=== PATIENT | female | born 1985 | race Caucasian/White ===

== ENCOUNTER 2019-06-10 22:18 | Observation (INO) | payer OTHER, SELFPAY ==
[2019-06-10 22:30] VITALS: TEMP 36.1; BMI 38.5
[2019-06-10 22:35] VITALS: BP 116/79; PULSE 97
[2019-06-10] MEDS: LACTATED RINGERS 1,000 ML 999 ML IV CONT (23:58)
--- NOTE | 2019-06-13 10:38 | PM.OBTRLD ---
OB - Triage/Final Diagnosis Visit Information Reason for evaluation: threatened labor
== END 2019-06-11 01:32 | disposition home or self-care (01) ==
PROVIDERS: Admitting Provider Obstetrics & Gynecology; Visit Provider Obstetrics & Gynecology
DX: O47.1 False labor at or after 37 completed weeks of gestation (principal); Z3A.38 38 weeks gestation of pregnancy
CPT/HCPCS: G0378; G0379; J7120

== ENCOUNTER 2019-06-12 20:44 | Observation (INO) | payer OTHER, SELFPAY ==
[2019-06-12 21:01] VITALS: BP 111/79; PULSE 86
[2019-06-12 21:16] VITALS: BP 111/59; PULSE 82
[2019-06-12 21:31] VITALS: BP 126/82; PULSE 80
[2019-06-12 21:46] VITALS: BP 118/75; PULSE 78
[2019-06-12 22:01] VITALS: BP 100/76; PULSE 80
[2019-06-12 22:16] VITALS: BP 117/74; PULSE 81
--- NOTE | 2019-06-12 22:36 | OBADM ---
This patient, Rosie Oneill, admitted to the OB room Labor/Delivery/Recovery 119 for observation. Patient/family oriented to hospital policies and general routines including ID bracelet, bed and alarms, visiting hours, pain management, procedures, bathroom and other care routines, personal items, smoking policy, room service/diet, and visiting hours. Patient/Family are encouraged to report perceived risks to care and to ask questions if they do not understand what they are told or what they should do.
--- NOTE | 2019-06-21 15:36 | PM.OBTRLD ---
OB - Triage/Final Diagnosis Visit Information Reason for evaluation: threatened labor
== END 2019-06-12 22:34 | disposition home or self-care (01) ==
PROVIDERS: Admitting Provider Obstetrics & Gynecology; Visit Provider Obstetrics & Gynecology
DX: O47.1 False labor at or after 37 completed weeks of gestation (principal); Z3A.39 39 weeks gestation of pregnancy
CPT/HCPCS: G0378; G0379

== ENCOUNTER 2019-06-13 15:28 | Outpatient (CLI) | payer OTHER, SELFPAY ==
[2019-06-13 15:45] LABS: Hematocrit 33.9 % (37.0-47.0); Hemoglobin 11.2 g/dL (12.0-15.0); Mean Corpuscular Hemoglobin 27.7 pg (26-34); Mean Corpuscular Volume 83.7 fl (80-100); Mean Platelet Volume 10.9 fl (7.4-10.4); Platelet Count Result 267 k/mm3 (150-375); Red Blood Count 4.05 M/mm3 (4.2-5.4); White Blood Count 8.6 K/mm3 (4.5-10.0)
[2019-06-13 16:42] LABS: HIV 1/2 Ab P24 Ag Result Negative (Negative)
[2019-06-14 07:43] LABS: Rapid Plasma Reagin Non-Reactive (NonReactive)
== END 2019-06-13 15:29 | disposition home or self-care (01) ==
LOC: ANHLAB 15:30
PROVIDERS: Visit Provider Obstetrics & Gynecology
DX: Z01.818 Encounter for other preprocedural examination (principal)
CPT/HCPCS: 36415; 85027; 86592; 86703; 86850; 86880; 86900; 86901; 86902; G0432

== ENCOUNTER 2019-06-14 09:53 | Inpatient (IN) | payer OTHER, SELFPAY ==
--- NOTE | 2019-06-13 15:18 | PC.NURSE ---
VERIFIED WITH OR SCHEDULE AND PATIENT --C/S WITH TUBAL LIGATION ON 06/14/19 AT 1200 PATIENT SENT TO LAB AFTER PREADMIT FOR PREOP LAB DRAW PLUS SECOND HIV
[2019-06-14] VITALS (69 sets, daily range): BP systolic 59–149; BP diastolic 33–126; PULSE 57–155; RESP 14–20; TEMP 35.8–36.8; O2SAT 94–100; BMI 38.5
--- NOTE | 2019-06-14 10:13 | WPDANESEPPF ---
Anes - Initial Pre Proc Eval Procedure: Operation Date: 06/14/19 12:00 Proposed Procedures p Repeat Section With Bilateral Tubal Ligation - Sean Steele MD Date/Time: 06/14/19 10:13 Surgeon: Sean Steele MD Pre Op Diagnosis: Scheduled C Section Patient Data Age: 33 Gender: F Height: 5 ft 8 in Weight: 115 kg Allergies Allergy/AdvReac Type Severity Reaction Status Date / Time peanut Allergy Difficulty Verified 06/13/19 14:57 Swallowing Home Medications Medication Instructions Recorded Confirmed Type escitalopram oxalate [Lexapro] 5 mg PO DAILY 06/13/19 06/13/19 History Patient hx anesthesia problems: none Family hx anesthesia problems: none PMFSH Past Medical History Medical History (Updated 06/14/19 @ 10:14 by George Pérez MD) Anxiety Depression Obesity Surgical History Surgical History (Updated 06/14/19 @ 10:14 by George Pérez MD) History of section History of cholecystectomy Hx of tonsillectomy Family History Family History Mother Hypothyroidism Father Hypertension Social History Social History Substance use: never Spiritual care concerns: No Anes - Eval Final PreProcedure Day of Procedure 06/14/19 10:13 Patient weight: obese Heart: regular rate and rhythm Airway: Mallampati scale class II Neurological: alert and oriented Last oral intake: >/= 8 hours ASA classification: II Emergent: no Anesthesia type and monitoring: regional spinal and standard monitoring Informed Consent: The patient's anesthetic plan and its attendant risks and benefits were discussed with the patient/family/POA. Questions were solicited and answers provided to the satisfaction of the patient/family/POA.
[2019-06-14] MEDS: LACTATED RINGERS 1,000 ML 999 ML IV CONT ×2 (10:25→11:02)
--- NOTE | 2019-06-14 10:46 | LDADM ---
This patient, Rosie Oneill, was admitted to Labor/Delivery/Recovery 119 on 06/14/19 at 09:53. Plans for and pain management were discussed with patient. Patient/family oriented to hospital policies and general routines including ID bracelet, bed and alarms, visiting hours, pain management, procedures, bathroom and other care routines, personal items, smoking policy, room service/diet and guest tray routines, infant security routines, and visiting hours. Patient/Family are encouraged to report perceived risks to care and to ask questions if they do not understand what they are told or what they should do. See OBIX for further documentation.
--- NOTE | 2019-06-14 10:57 | PM.IMHP ---
H&P: HPI History of Present Illness Chief complaint: Scheduled C Section Narrative: Rosie Oneill is a 33 year old female presents for repeat delivery. Prior delivery due to arrest of dilation. We have also discussed and she has consented for bilateral tubal ligation. She knows the permanence failure rate risk of ectopic and regret strongly desires to proceed. Review of Systems Review of Systems: All systems reviewed & are unremarkable except as noted in HPI and below PMFSH Past Medical History Medical History Anxiety Depression Obesity Surgical History Surgical History History of section History of cholecystectomy Hx of tonsillectomy Family History Family History Mother Hypothyroidism Father Hypertension Social History Social History Smoking status: Never smoker Substance use: never Spiritual care concerns: No Meds Home Medications and Allergies Home Medications Medication Instructions Recorded Confirmed Type sertraline 50 mg 06/14/19 History Allergies Allergy/AdvReac Type Severity Reaction Status Date / Time peanut Allergy Difficulty Verified 06/13/19 14:57 Swallowing Vital Signs Vital Signs - 24 hr 06/14/19 10:16 06/14/19 10:31 06/14/19 10:36 Temperature 35.8 C L Pulse Rate 128 H 97 Respiratory Rate 20 Blood Pressure 115/75 134/79 Exam Const: General: no acute distress Resp: Auscultation: clear to auscultation bilaterally Cardio: Rate: regular rate Rhythm: regular rhythm GI: Other: FH 40cm FHT 140 Assessment and Plan Assessment and plan (1) : Code(s): Z34.90 - Encounter for supervision of normal , unspecified, unspecified trimester Status: Acute (2) Encounter for female sterilization procedure: Code(s): Z30.2 - Encounter for sterilization Status: Acute Additional Plan Proceed with a repeat delivery with bilateral tubal ligation.
[2019-06-14] MEDS: ceFAZolin 2 GM/D5W 50 ML 2 GM/50 ML BAG IVPB (11:07)
--- NOTE | 2019-06-14 11:52 | PM.OBPRVD ---
OB - Delivery Note Procedure Procedure: Procedures Operation Date: 06/14/19 12:00 Actual Procedures Side Surgeon p Repeat Section With Bilateral Tubal Ligation Sean Steele MD Route of delivery: (with BTL) Specimen: No Estimated blood loss (mL): 600 Anesthesia type: Spinal Disposition: PACU Narrative: Patient prepped and draped in usual manner for this procedure. Pfannenstiel incision was made carried down the fascia which was extended bilaterally the length of the skin incision. Fascia was dissected sharply and bluntly sharply superiorly and inferiorly with the rectus muscles which were bluntly dissected in the. The was readily entered. Bladder flap was developed uterus scored in vertex was delivered without difficulty. Rest of baby was delivered cord clamped cut placenta removed manually. Uterus was exteriorized cleared of membranes and clots and closed using 0 Monocryl running interlocking manner with good approximation hemostasis noted. Attention was then placed tubes which were bilaterally grasped with [place] clamp doubly ligated using 0 plain suture and the tubal segment was removed. Uterus was turned to the abdomen gutters were cleared of serosanguineous fluid and clots and both tubal stumps were noted be intact and hemostatic. All subfascial tissue was hemostatic and fascia was approximated using 0 Vicryl from left angle midline right of the midline subcutaneous tissue was hemostatic and approximated 0 plain suture joya used to approximate skin edges. Patient type seizure well immediate postop condition mother baby both excellent. [place] Baby Weeks of gestation at delivery: 39 Infant gender: Female Weight (pounds): 7 Weight (ounces): 5 presentation: vertex score one minute: 8 score five minutes: 9
[2019-06-14] MEDS: OXYTOCIN 30 UNITS/NS 500 ML 30 UNITS/500 ML BAG 125 UNITS IV CONT (12:33)
[2019-06-14] MEDS: KETOROLAC 30 MG/ML VIAL (*BKC) IV PUSH (14:07)
--- NOTE | 2019-06-14 15:30 | PC.NURSE ---
Consulted with patient, mother reports infant eagerly fed for first feeding using the nipple shield she brought from home. Mother breastfed first child for 9 months using the shield. Discussed nipple shield precautions and possible complications. Instructions given on application and cleaning of shield. Patient able to return demonstration on proper application of shield. Discussed the need to initiate pumping if infant continues to nurse with the shield. Patient verbalizes understanding. Reviewed infant feeding cues, frequencies, duration of feedings, feeding elimination flow sheet, and signs of adequate intake. Demonstrated stimulation techniques to wake infant for feeding. Assisted with to breast. Reviewed positioning/alignment in cross cradle, holding breast in U hold and guided asymmetrical latch on. Infant was able to latch correctly with the shield in place. Infant nursed eagerly, with steady draws and occasional swallowing noted. Reviewed signs of a correct latch, effective nursing and suck swallow ratio. Infant was able to maintain latch without discomfort to mother. Nipple care reviewed. Instructed mother to call out for RN assistance if she is unable to latch infant for feeding or she has discomfort with nursing. Instructed feeding should be initiated three hours from start of last feeding or if feeding cues are noted before. Mother voiced understanding of information shared.
[2019-06-14] MEDS: SIMETHICONE 80 MG TAB.CHEW PO (17:47)
[2019-06-15 00:05] VITALS: BP 116/66; PULSE 87; RESP 18; TEMP 36.8
[2019-06-15] MEDS: IBUPROFEN 600 MG TABLET PO ×4 (00:25→20:23)
[2019-06-15 04:15] VITALS: BP 108/63; PULSE 76; RESP 18; TEMP 36.2
[2019-06-15 05:21] LABS: Basophils Percent Auto 0.2 % (0.2-1.2); Eosinophils Absolute Auto 0.1 K/mm3 (0-0.3); Eosinophils Percent Auto 0.7 % (0-4.4); Hematocrit 31.1 % (37.0-47.0); Hemoglobin 9.9 g/dL (12.0-15.0); Immature Granulocyte Absolute 0.08 K/mm3 (0.00-0.031); Immature Granulocyte Percent A 0.6 % (0-0.5); Lymphocytes Absolute Auto 1.05 K/mm3 (0.9-3.2); Lymphocytes Percent Auto 7.8 % (18.3-44.2); Mean Corpuscular HGB Conc 31.8 g/dl (32-36); Mean Corpuscular Hemoglobin 27.3 pg (26-34); Mean Corpuscular Volume 85.7 fl (80-100); Mean Platelet Volume 12.1 fl (7.4-10.4); Monocytes Absolute Auto 0.8 K/mm3 (0.1-0.6); Monocytes Percent Auto 5.8 % (2.6-8.5); Neutrophils Absolute Auto 11.4 K/mm3 (1.3-6.7); Neutrophils Percent Auto 84.9 % (45.5-73.1); Platelet Count Result 234 k/mm3 (150-375); Red Blood Count 3.63 M/mm3 (4.2-5.4); Red Cell Distribution Width 13.2 % (11.5-14.5); White Blood Count 13.4 K/mm3 (4.5-10.0)
[2019-06-15 07:50] VITALS: BP 98/54; PULSE 98; RESP 18; TEMP 36.9; O2SAT 99
[2019-06-15] MEDS: DOCUSATE SODIUM 100 MG CAPSULE PO ×2 (07:53→16:21)
[2019-06-15] MEDS: POLYSACCHARIDE IRON COMPLEX 150 MG CAPSULE PO ×2 (07:54→16:21)
[2019-06-15] MEDS: SERTRALINE HCL 50 MG TABLET BY MOUTH (07:54)
[2019-06-15] MEDS: SIMETHICONE 80 MG TAB.CHEW PO ×3 (07:54→16:21)
[2019-06-15] MEDS: MULTIVIT/MIN/PREN/FOL AC/IRON TABLET 1 TAB PO (07:54)
--- NOTE | 2019-06-15 09:13 | WPDANLDPN2 ---
Anes-Prog Note L&D Date/Time: 06/15/19 09:13 Comfortable throughout: section Neuraxial method: spinal Epidural/Spinal procedure site: clean & non-tender Neuro status: Neuro function grossly intact. Cardiovascular status: normal Respiratory status: normal Airway patency: baseline Mental status: baseline Post-Op hydration status: normal Vital Signs: Last Vital Signs Temp 36.2 C L 06/15/19 04:15 Pulse 76 06/15/19 04:15 Resp 18 06/15/19 04:15 BP 108/63 06/15/19 04:15 Pulse Ox 98 06/14/19 17:50 I/O: Intake & Output 06/14/19 06/15/19 06/15/19 23:59 07:59 15:59 Intake Total 600 1320 Output Total 650 2050 Balance -50 -730 Post-procedural complaints: none Patient feedback: Patient satisfied with anesthetic care.
--- NOTE | 2019-06-15 09:13 | WPDANLDNPN2 ---
Anes-Prog Note L&D-Neuraxial Date/Time: 06/15/19 09:13 Neuraxial medications: intrathecal PF morphine Opiod-related complaints: none Patient feedback: Patient satisfied with post-operative pain management.
--- NOTE | 2019-06-15 09:25 | PC.NURSE ---
Consult with pt., mother reports she continues to use the shield for each feeding. Mother is supplementing after most feeding and pumping. Discussed regular pumping until her milk supply is well established and is adequately gaining weight. Offered assist with feedings. Mother reports she is able to latch without issue. Requested mother call out next feeding for observation.
[2019-06-15] MEDS: RHO(D) IMMUNE GLOBULIN 300 MCG SYRINGE IM (10:18)
[2019-06-15 20:15] VITALS: BP 120/74; PULSE 89; RESP 16; TEMP 37; O2SAT 97
[2019-06-16] MEDS: IBUPROFEN 600 MG TABLET PO ×2 (04:59→11:00)
[2019-06-16] MEDS: SERTRALINE HCL 50 MG TABLET BY MOUTH (07:34)
[2019-06-16] MEDS: DOCUSATE SODIUM 100 MG CAPSULE PO (07:34)
[2019-06-16] MEDS: MULTIVIT/MIN/PREN/FOL AC/IRON TABLET 1 TAB PO (07:34)
[2019-06-16] MEDS: POLYSACCHARIDE IRON COMPLEX 150 MG CAPSULE PO (07:34)
--- NOTE | 2019-06-16 07:39 | PM.OBDSVD ---
DS: Diagnosis Admitting Diagnosis Admitting Diagnosis: Encounter for supervision of normal , unspecified, unspecified trimester OB - DS: Summary OB Procedures : None OB Procedures Intrapartum: and Tubal ligation OB Procedures: : None Peripartum Data Procedures: Procedures Operation Date: 06/14/19 12:00 Actual Procedures Side Surgeon p Repeat Section With Bilateral Tubal Ligation Sean Steele MD Time Spent with Patient Time attestation: Total time spent providing and/or coordinating discharge services: DS: Data Data Completed and Pending Pending studies at discharge: Pending at discharge 06/14/19 11:39 Surgical [PTH] Routine Labs on day of discharge: Labs from last 24 hours 06/15/19 04:20 Blood Type A Negative Antibody Screen Positive Antibody Identification Inconclusive Antigen Identification Cancelled WENDY, IgG Interpret Cancelled WENDY, Poly Interpret Cancelled WENDY, Complement Interp Cancelled Screen Negative Baby's Blood Type A pos Baby's WENDY Negative Doses of RhIg Required 1 Discharge Plan Discharge Discharging Clinician: Sean Steele Patient Disposition: Home, Self-Care Activity: as tolerated Diet: as tolerated Wound Care Instructions: incision open to air Discharge Instructions: office wednesday/wednesday for staple removal Patient Instructions: Antibiotic Form Stand Alone Forms: General Discharge Information Follow-up/Referrals: Sean Steele MD [Physician] - 3 Weeks Discharge Medications: New hydrocodone-acetaminophen 5-325 mg Tablet 1 tab PO Q3H PRN (Reason: Moderate Pain (4-6)) Qty: 30 RF: 0 ibuprofen 600 mg Tablet 600 mg PO Q6H PRN (Reason: Cramping) Qty: 30 RF: 0 Continued sertraline 50 mg tablet 50 mg RF: 0 Date of admission: 06/14/19 09:53 Primary Care Provider: UNKNOWN,DOCTOR Admitting Provider: Sean Steele Attending physician on admission: Sean Steele
[2019-06-16 07:55] VITALS: BP 123/71; PULSE 82; RESP 18; TEMP 37; O2SAT 99
--- NOTE | 2019-06-16 09:15 | PC.NURSE ---
Mother is able to independently latch with appropriate positioning/alignment. Infant is latching at times without nipple shield. Mother will supplement when she feels is not satisfied after . She continues to pump most feedings and feels milk is transitioning. She denies any nipple discomfort, is feeding as required and waking to feed if needed. has had at least 8 effective feedings in the past 24 hours, and is currently meeting outcomes for weight, output, jaundice and feeding frequencies. Mother states she feels confident to continue with current feeding plan at home. Mother's goals are to discontinue supplementation once her milk is in and hopes to wean from shield. Reviewed transition to breast milk, signs of adequate intake, and engorgement/relief. Instructed to call ICP if intake/output less than required. Reviewed regular medications mother is taking. Information provided per Luisa. Reviewed community resources on the [facility] website and in the Mom/Baby guide. Information on outpatient services provided. Suggested mother call if is not weaned from shield by 1 week or continues to require supplementation after 1 week. Mother has no further questions at this time.
--- NOTE | 2019-06-16 12:45 | PC.NURSE ---
This patient, Rosie Oneill, was received from Labor & Delivery on 06/16/19 at 1114. Personal belongings list checked and signed. Patient/family oriented to unit policies and routines
--- NOTE | 2019-06-16 13:15 | PC.NURSE ---
Patient recieved information of viewing the discharge video Mother & Baby Care, The First Two Weeks . Patient was given the opportunity and encouraged to ask questions. Patient verbalized understanding of information shared and has been given the mother/baby guide for home reference.
[2019-06-19 11:06] VITALS: BP 119/76; PULSE 84; RESP 20; TEMP 36.8
== END 2019-06-16 11:46 | disposition home or self-care (01) | DRG 540 ==
LOC: ANHLDR 09:54 → ANHOB2 14:36
PROVIDERS: Admitting Provider Obstetrics & Gynecology; Visit Provider Obstetrics & Gynecology
PROC: 10D00Z1 Extraction of Products of Conception, Low, Open Approach (ICD-10-PCS; CPT 59514; principal; 2019-06-14 12:00)
DX: O34.211 Maternal care for low transverse scar from previous cesarean delivery (principal); Z37.0 Single live birth; Z3A.39 39 weeks gestation of pregnancy; O99.344 Other mental disorders complicating childbirth; F41.8 Other specified anxiety disorders; O99.824 Streptococcus B carrier state complicating childbirth; O99.214 Obesity complicating childbirth; E66.9 Obesity, unspecified; Z30.2 Encounter for sterilization
CPT/HCPCS: 36415; 85025; 85461; 88302; 90384; A9270; J0131; J0690; J1200; J1885; J2274; J2370; J2405; J2590; J2790; J7120

== ENCOUNTER 2019-12-21 16:52 | Emergency (ER) | payer OTHER, SELFPAY ==
[2019-12-21 17:02] VITALS: BP 127/70; PULSE 76; RESP 17; TEMP 36.3; O2SAT 100
--- NOTE | 2019-12-21 18:10 | ED.GENADULT ---
HPI - General Adult General Chief complaint: Psychiatric Symptoms <Nohemy Preciado PA-C - Last Filed: 12/22/19 02:11> Stated complaint: SI <Nohemy Preciado PA-C - Last Filed: 12/22/19 02:11> Time Seen by Provider: 12/21/19 18:05 <Nohemy Preciado PA-C - Last Filed: 12/22/19 02:11> Source: patient and family <DOMINIC Concepcion Last Filed: 12/22/19 02:11> Mode of arrival: ambulatory <DOMINIC Concepcion Last Filed: 12/22/19 02:11> Limitations: no limitations <DOMINIC Concepcion Last Filed: 12/22/19 02:11> History of Present Illness HPI narrative: Pt asked to come to the hospital today when she recognized her abnormal thoughts about wanting to suffocate her 6 month old daughter because she wouldn't quit crying. She called her and he came home immediately. She is very tearful when she recounts the story. She states that these thoughts started approximately 2 weeks ago, but escalated today. 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 When she does get time to sleep she can't shut off her brain . She has been on zoloft for ~ 5 yrs. She has been self-harming for approx 10 hrs, she farias herself. Most recently last week using a plate roller. <Nohemy Preciado PA-C - Last Filed: 12/22/19 02:11> Onset (ago): week(s) <DOMINIC Concepcion Last Filed: 12/22/19 02:11> Related Data Home medications: Home Medications Medication Instructions Recorded Confirmed sertraline 50 mg 06/14/19 <DOMINIC Concepcion Last Filed: 12/22/19 02:11> Allergies/adverse reactions: Allergies Allergy/AdvReac Type Severity Reaction Status Date / Time peanut Allergy Difficulty Verified 12/21/19 17:01 Swallowing <Nohemy Preciado PA-C - Last Filed: 12/22/19 02:11> Review of Systems Review of Systems: All systems reviewed & are unremarkable except as noted in HPI and below <Nhoemy Preciado PA-C - Last Filed: 12/22/19 02:11> [facility] Past Medical History Medical History: Medical History (Updated 12/22/19 @ 17:45 by Arian Richardson MD) Anxiety Depression Obesity <Nohemy Preciado PA-C - Last Filed: 12/22/19 02:11> Surgical History Surgical History: Surgical History History of section History of cholecystectomy Hx of tonsillectomy <Nohemy Preciado PA-C - Last Filed: 12/22/19 02:11> Family History Family History: Family History Mother Hypothyroidism Father Hypertension <Nohemy Preciado PA-C - Last Filed: 12/22/19 02:11> Social History Social History: Social History Smoking status: Never smoker Substance use: never Gender identity (if verbalized by the patient): Female Spiritual care concerns: No <Nohemy Preciado PA-C - Last Filed: 12/22/19 02:11> Exam Const: General: no acute distress and alert <Nohemy Preciado PA-C - Last Filed: 12/22/19 02:11> Orientation/consciousness: patient oriented x3 <Nohemy Preciado PA-C - Last Filed: 12/22/19 02:11> Other: well kept <Nohemy Preciado PA-C - Last Filed: 12/22/19 02:11> HENMT: Head: normal to inspection <Nohemy Preciado PA-C - Last Filed: 12/22/19 02:11> Eyes: Conjunctivae: conjunctivae normal <Nohemy Preciado PA-C - Last Filed: 12/22/19 02:11> Pupils: Equal, round and reactive pupils present <Nohemy Preciado PA-C - Last Filed: 12/22/19 02:11> Resp: Effort & Inspection: normal respiratory effort <DOMINIC Concepcion Last Filed: 12/22/19 02:11> Auscultation: clear to auscultation bilaterally <Nohemy Preciado PA-C - Last Filed: 12/22/19 02:11> Cardio: Rate: regular rate <DOMINIC Concepcion Last Filed: 12/22/19 02:11> Rhythm: regular rhythm <Nohemy Thorpe Ame
[2019-12-21 18:14] LABS: Basophils Percent Auto 0.5 % (0.2-1.2); Eosinophils Absolute Auto 0.1 K/mm3 (0-0.3); Eosinophils Percent Auto 1.7 % (0-4.4); Hematocrit 42.6 % (37.0-47.0); Hemoglobin 13.9 g/dL (12.0-15.0); Immature Granulocyte Absolute 0.02 K/mm3 (0.00-0.031); Immature Granulocyte Percent A 0.2 % (0-0.5); Lymphocytes Percent Auto 18.1 % (18.3-44.2); Mean Corpuscular HGB Conc 32.6 g/dl (32-36); Mean Corpuscular Hemoglobin 27.7 pg (26-34); Mean Platelet Volume 10.7 fl (7.4-10.4); Monocytes Absolute Auto 0.5 K/mm3 (0.1-0.6); Neutrophils Absolute Auto 6.1 K/mm3 (1.3-6.7); Neutrophils Percent Auto 73.5 % (45.5-73.1); Platelet Count Result 280 k/mm3 (150-375); Red Blood Count 5.01 M/mm3 (4.2-5.4); Red Cell Distribution Width 13.4 % (11.5-14.5); White Blood Count 8.3 K/mm3 (4.5-10.0)
[2019-12-21 18:26] LABS: Alanine Aminotransferase 26 U/L (4-35); Albumin Level 4.3 g/dL (3.5-5.1); Alkaline Phosphatase 57 U/L (38-126); Anion Gap 10 mmol/L (8-16); Aspartate Amino Transferase 26 U/L (14-36); Bilirubin,Total 0.2 mg/dL (0.2-1.3); Blood Urea Nitrogen 16 mg/dL (7-17); Calcium 9.3 mg/dL (8.4-10.2); Carbon Dioxide 25 mmol/L (22-30); Chloride 104 mmol/L (98-107); Estimated CRCL calculation 113 ml/min; Estimated Glomerular Filt Rate > 60; Glucose 98 mg/dL (65-105); Potassium 3.9 mmol/L (3.4-5.0); Sodium 139 mmol/L (137-145)
[2019-12-21 18:26] LABS: Add Urine Microscopic? NO; Appearance Urine Clear (Clear); Bilirubin Urine Negative (Negative); Blood Urine Negative (Negative); Color Urine Straw (Yellow); Glucose Urine UA Negative (Negative); Ketones Urine Negative (Negative); Leukocyte Esterase Ur Negative LEU/UL (Negative); Nitrate Urine Negative (Negative); Protein Urine Negative (Negative); Specific Grav Ur 1.014 (1.001-1.035); Urobilinogen Urine Negative mg/dL (<2.0)
[2019-12-21 18:44] LABS: Ethanol < 10 mg/dL (<10)
[2019-12-21 18:54] LABS: Amphetamine Screen Urine Negative (Negative); Barbiturate Screen Urine Negative (Negative); Benzodiazepines Screen Urine Negative (Negative); Cannabinoid Screen Urine Positive (Negative); Cocaine Screen Urine Negative (Negative); Methadone Screen Urine Negative (Negative); Opiate Screen Urine Negative (Negative); Phencyclidine Screen Urine Negative (Negative)
--- NOTE | 2019-12-21 21:24 | PC.NURSE ---
[facility] returned phone call, no beds available at this time.
--- NOTE | 2019-12-21 23:23 | PC.NURSE ---
[facility] returned phone call, no beds available at this time.
[2019-12-21] MEDS: ACETAMINOPHEN 500 MG TABLET 1000 MG PO (23:41)
[2019-12-22 00:11] VITALS: TEMP 36.3
[2019-12-22 04:49] VITALS: BP 129/76; PULSE 83; RESP 17; O2SAT 99
[2019-12-22 07:27] VITALS: BP 117/81; PULSE 81; RESP 16; TEMP 36.3; O2SAT 100
--- NOTE | 2019-12-22 07:30 | PC.NURSE ---
Report received from GÉNESIS Betancourt, to continue care. 1:1 observation continues with a sitter. Breakfast ordered, denies needs at present. Pt made aware of pending bed placement within the [facility] system.
--- NOTE | 2019-12-22 08:35 | PC.NURSE ---
Condition unchanged. Pt resting comfortably, denies needs. Breakfast tray delivered. 1:1 observation with sitter continues.
--- NOTE | 2019-12-22 09:32 | PC.NURSE ---
Pt status unchanged. Watching TV and offering no complaints. 1:1 observation with sitter continues.
--- NOTE | 2019-12-22 10:27 | PC.NURSE ---
Received call from Marjorie at [facility]. Asked about COVID status. Explained that the test was collected 12/21/19 @ 2035 and is still pending. States to call them when the test is negative and they will assess bed availability at that time. Request to keep patient on wait list at this time and notified that we will contact them when test is negative.
--- NOTE | 2019-12-22 10:56 | PC.NURSE ---
Report to GÉNESIS Hernández, to continue care.
--- NOTE | 2019-12-22 12:28 | PC.NURSE ---
SPOKE WITH PATIENT AT LENGTH ABOUT CURRENT THOUGHTS OF SELF HARM. PATIENT DENIES WANTING TO HARM HERSELF AT THIS TIME. STATES SHE WAS OVERWHELMED AND STRESSED OVER TAKING CARE OF HER 3 YEAR OLD SON AND 6 MONTH OLD DAUGHTER. REPORTS HAS NOT BEEN SLEEPING WELL HAS BEEN VERY EMOTIONAL . STATES FEELS A LOT BETTER AFTER SLEEPING ALL NIGHT. HAS NO CURRENT THOUGHTS OF HARMING HER SELF OR OTHERS
[2019-12-22 12:45] LABS: SARS-CoV-2 RNA PCR Negative
--- NOTE | 2019-12-22 12:55 | PC.NURSE ---
SPOKE WITH JETHRO AT [facility] TO DISCUSS POSSIBLE REEVALUATION FOR RISK. SHE REPORTS THAT SHE DOES NOT FEEL COMFORTABLE WITH PATIENT NOT BEING PLACED AND DECLINED REEVALUATION
[2019-12-22 13:00] VITALS: BP 122/60; PULSE 80; RESP 18; O2SAT 99
--- NOTE | 2019-12-22 13:45 | PC.NURSE ---
covid test results faxed to [facility]
--- NOTE | 2019-12-22 15:31 | PC.NURSE ---
[facility] here to evaluate patient. requested paperwork faxed to [facility]
--- NOTE | 2019-12-22 18:24 | PC.NURSE ---
[facility] called, told them patient was excepted at another facility. called crisis to give them the update.
--- NOTE | 2019-12-22 18:25 | PC.NURSE ---
[facility] stated they would take transfer ETA approx [id number]
[2019-12-22 22:34] VITALS: BP 126/76; PULSE 70; RESP 18; O2SAT 99
== END 2019-12-22 22:36 ==
PROVIDERS: Emergency Medicine; Physician Assistant; Emergency Provider Emergency Medicine; PCP Obstetrics & Gynecology
DX: O99.345 Other mental disorders complicating the puerperium (principal); F53.0 Postpartum depression; Z20.828 Contact with and (suspected) exposure to other viral communicable diseases; Z91.5 Personal history of self-harm; F41.9 Anxiety disorder, unspecified; E66.9 Obesity, unspecified; Z68.36 Body mass index [BMI] 36.0-36.9, adult
CPT/HCPCS: 36415; 80053; 80307; 81003; 81025; 84443; 85025; 87635; 99285; A9270; C9803; U0003